=== PATIENT | female | born 1945 | race Caucasian/White ===

== ENCOUNTER 2017-05-27 21:55 | Inpatient (IN) | payer OTHER ==
[~2017-05-27] VITALS: Ht 165.1 cm; Wt 81.9 kg
[~2017-05-27 21:55] MED LIST: ASPIRIN; BP MED; BYSTOLIC5 MG PO; CHOLESTEROL MED; CRESTOR20 MG PO; ENDOCET 5-3251 EAC1 PO; METAXALONE800 MG PO; NIACIN500 M1 PO; OXYCODONE5 MG PO; PARAFON FORTE500 MG PO; Percocet 7.5/325,End PO; VALIUM5 MG PO
[2017-05-27 22:47] LABS: HEMATOCRIT 37.6 % (36.0-46.0); HEMOGLOBIN 12.3 G/DL (11.9-15.5); MCH 28.5 PG (29.0-34.0); MCHC 32.7 G/DL (30.0-36.0); PLATELET COUNT 299 K/uL (156-360); RBC DIS.WIDTH-CV 12.3 % (11.8-14.6); RBC DIS.WIDTH-SD 39.6 % (39-53); RED BLOOD COUNT 4.32 M/uL (3.80-5.20); WHITE BLOOD COUNT 11.6 K/uL (4.1-10.2)
[2017-05-27 22:58] LABS: CHLORIDE 101 mEq/L (99-109); POTASSIUM 4.7 mEq/L (3.7-5.4); SODIUM 135 mEq/L (136-147)
[2017-05-27 22:59] LABS: GLUCOSE 136 mg/dL (70-99)
[2017-05-27 23:03] LABS: CREATININE 0.9 mg/dL (0.6-1.3); GFR ESTIMATE (CALCULATED) > 59 mL/min/
[2017-05-27 23:04] LABS: UREA NITROGEN (BUN) 16 mg/dL (9-23)
[2017-05-27 23:08] LABS: TROP-I INTERPRETATION NEGATIVE; TROPONIN-I 0.02 ng/mL (0.0-0.30)
[2017-05-28] MEDS ORDERED: LORAZEPAM0.5 MG PO (01:04)
[2017-05-28] MEDS ORDERED: SLEEP AID25 M1 PO (01:04)
[2017-05-28] MEDS ORDERED: SIMVASTATIN40 MG PO (01:05)
[2017-05-28] MEDS ORDERED: CELEBREX200 MG PO (01:05)
[2017-05-28] MEDS ORDERED: METOPROLOL SUCC50 MG PO (01:05)
[2017-05-28] MEDS ORDERED: TYLENOL ARTHRI650 MG PO (01:05)
[2017-05-28] MEDS ORDERED: ST. JOHN'S WOR300 MG PO (01:05)
[2017-05-28 01:43] LABS: PTT 32.2 SEC (25-37)
[2017-05-28 01:57] LABS: ALBUMIN 3.7 g/dL (3.2-4.8)
[2017-05-28 02:00] LABS: TOTAL PROTEIN 7.6 g/dL (6.4-8.3)
[2017-05-28 02:02] LABS: TOTAL BILIRUBIN 0.3 mg/dL (0.0-1.0)
[2017-05-28 02:03] LABS: ALKALINE PHOSPHATASE 76 IU/L (3-129)
[2017-05-28 02:05] LABS: AST (GOT) 19 IU/L (2-34)
[2017-05-28 02:06] LABS: ALT (GPT) 18 IU/L (3-49); DIRECT BILIRUBIN 0.2 mg/dL (0.0-0.3)
[2017-05-28 02:07] LABS: LIPASE 48 U/L (1.0-51.0)
[2017-05-28 06:22] VITALS: BP 147/86
[2017-05-28 11:03] VITALS: BP 149/83
[2017-05-28 15:11] LABS: TROP-I INTERPRETATION POSITIVE; TROPONIN-I 0.88 ng/mL (0.0-0.30)
[2017-05-28 15:50] VITALS: BP 140/69
[2017-05-28 20:14] VITALS: BP 147/75
[2017-05-28 23:02] LABS: TROP-I INTERPRETATION POSITIVE; TROPONIN-I 0.95 ng/mL (0.0-0.30)
[2017-05-28 23:25] VITALS: BP 138/78
[2017-05-29 04:39] VITALS: BP 130/76
[2017-05-29 06:32] LABS: TROP-I INTERPRETATION POSITIVE; TROPONIN-I 0.97 ng/mL (0.0-0.30)
[2017-05-29 08:08] VITALS: BP 140/78
[2017-05-29 11:45] VITALS: BP 127/86
[2017-05-29 15:09] VITALS: BP 121/86
[2017-05-29 19:46] VITALS: BP 144/70
[2017-05-29 23:15] VITALS: BP 118/68
[2017-05-30 05:00] VITALS: BP 130/71
[2017-05-30 07:03] LABS: TROP-I INTERPRETATION INDETERMINATE; TROPONIN-I 0.51 ng/mL (0.0-0.30)
[2017-05-30 07:56] VITALS: BP 123/67
[2017-05-30 11:44] VITALS: BP 136/73
[2017-05-30 15:33] VITALS: BP 143/70
[2017-05-30 19:29] VITALS: BP 151/69
[2017-05-30 23:56] VITALS: BP 110/60
[2017-05-31 03:28] VITALS: BP 115/73
[2017-05-31 08:33] VITALS: BP 122/68
[2017-05-31 17:41] VITALS: BP 131/65
[2017-05-31 23:52] VITALS: BP 111/55
[2017-06-01 03:23] VITALS: BP 138/69
[2017-06-01 08:26] VITALS: BP 115/64
[2017-06-01 15:50] VITALS: BP 131/77
[2017-06-01 20:00] VITALS: BP 108/61
[2017-06-02 00:04] VITALS: BP 94/58
[2017-06-02 03:45] VITALS: BP 92/53
[2017-06-02 09:01] VITALS: BP 106/57
[2017-06-02 09:28] LABS: HEMOGLOBIN 11.3 G/DL (11.9-15.5); MCH 28.2 PG (29.0-34.0); MCHC 32.3 G/DL (30.0-36.0); MCV 87.3 FL (83-99); PLATELET COUNT 266 K/uL (156-360); RBC DIS.WIDTH-CV 12.5 % (11.8-14.6); RBC DIS.WIDTH-SD 40.1 % (39-53); RED BLOOD COUNT 4.01 M/uL (3.80-5.20); WHITE BLOOD COUNT 9.3 K/uL (4.1-10.2)
[2017-06-02 09:53] LABS: CHLORIDE 95 MEQ/L (99-109); CREATININE 0.8 MG/DL (0.6-1.3); GFR ESTIMATE (CALCULATED) > 59 mL/min/; GLUCOSE 124 mg/dL (70-99); POTASSIUM 3.9 MEQ/L (3.7-5.4); SODIUM 130 MEQ/L (136-147); UREA NITROGEN (BUN) 18 mg/dL (9-23)
[2017-06-02 11:29] VITALS: BP 118/62
[2017-06-02 16:02] VITALS: BP 133/60
== END 2017-06-02 16:41 | disposition short-term general hospital (02) | DRG 280 ==
LOC: EME 21:55 → 3EAST 05-28 04:48 → EDOF 05-28 04:48 → ENRESERV 05-28 04:54 → 3EAST 05-28 05:40 → ENRESERV 06-01 10:00 → 3EAST 06-01 11:54 → ENRESERV 06-01 14:14 → 4EAST 06-01 15:45 → ENPENDDIS 06-02 → 4EAST 06-02 16:41
PROVIDERS: Emergency Medicine; Internal Medicine; Internal Medicine Cardiovascular Disease; Internal Medicine Pulmonary Disease
DX: I21.4 Non-ST elevation (NSTEMI) myocardial infarction (principal); J18.9 Pneumonia, unspecified organism; J20.9 Acute bronchitis, unspecified; J44.0 Chronic obstructive pulmonary disease with (acute) lower respiratory infection; J44.1 Chronic obstructive pulmonary disease with (acute) exacerbation; I08.3 Combined rheumatic disorders of mitral, aortic and tricuspid valves; I10 Essential (primary) hypertension; I25.10 Atherosclerotic heart disease of native coronary artery without angina pectoris; E78.5 Hyperlipidemia, unspecified; I25.5 Ischemic cardiomyopathy; I44.7 Left bundle-branch block, unspecified; F41.9 Anxiety disorder, unspecified; G89.29 Other chronic pain; M19.90 Unspecified osteoarthritis, unspecified site; E66.9 Obesity, unspecified; Z68.31 Body mass index [BMI] 31.0-31.9, adult; Z87.891 Personal history of nicotine dependence; Z98.1 Arthrodesis status; Z82.49 Family history of ischemic heart disease and other diseases of the circulatory system; Z82.5 Family history of asthma and other chronic lower respiratory diseases
CPT/HCPCS: 71046; 71250; 78452; 80048; 80076; 83605; 83690; 84484; 85027; 85379; 85610; 85730; 87040; 93005; 93306; 94640; 94640 76; 99202; 99281; 99285; A9500; C1750; C1769; C1887; J1644; J1650; J1956; J2250; J2785; J7512

== ENCOUNTER 2017-08-04 19:54 | Inpatient (IN) | payer OTHER ==
[~2017-08-04] VITALS: Ht 165.1 cm; Wt 76.6 kg
[~2017-08-04 19:54] MED LIST changes: +CELEBREX200 MG PO; +LORAZEPAM0.5 MG PO; +METOPROLOL SUCC50 MG PO; +SIMVASTATIN40 MG PO; +SLEEP AID25 M1 PO; +ST. JOHN'S WOR300 MG PO; +TYLENOL ARTHRI650 MG PO
[2017-08-04 20:57] LABS: BASE EXCESS 3.3 mEq/L (-3 to +3); BICARBONATE 27.8 mEq/L (22-26); COMMENTS - BLOOD GASES C+; DEVICE NC; METHEMOGLOBIN 1.5 % (0-1.5); O2 FLOW 2 L/MIN; PCO2 41 mm Hg (35-45); PO2 85 mm Hg (80-100); SITE RR; pH 7.44 (7.35-7.45)
[2017-08-04 21:00] LABS: BASOPHIL (%) 0.2 % (0-1); EOSINOPHIL (%) 0.2 % (0-5); HEMATOCRIT 35.2 % (36.0-46.0); HEMOGLOBIN 11.3 G/DL (11.9-15.5); IMMATURE GRANULOCYTE (%) 0.4 % (0.0-0.7); LYMPHOCYTE (%) 15.5 % (15-42); LYMPHOCYTE COUNT 1.9 K/uL (1.0-2.8); MCH 26.5 PG (29.0-34.0); MCHC 32.1 G/DL (30.0-36.0); MCV 82.6 FL (83-99); MONOCYTE (%) 8.9 % (3-12); MONOCYTE COUNT 1.1 K/uL (0-0.8); NEUTROPHIL (%) 74.8 % (45-76); NEUTROPHIL COUNT 9.2 K/uL (1.8-6.4); PLATELET COUNT 268 K/uL (156-360); RBC DIS.WIDTH-CV 12.9 % (11.8-14.6); RBC DIS.WIDTH-SD 38.8 % (39-53); RED BLOOD COUNT 4.26 M/uL (3.80-5.20); WHITE BLOOD COUNT 12.3 K/uL (4.1-10.2)
[2017-08-04 21:04] LABS: ALBUMIN 3.5 g/dL (3.2-4.8)
[2017-08-04 21:05] LABS: CHLORIDE 95 mEq/L (99-109); POTASSIUM 4.5 mEq/L (3.7-5.4); SODIUM 130 mEq/L (136-147)
[2017-08-04 21:07] LABS: GLUCOSE 137 mg/dL (70-99); TOTAL PROTEIN 7.3 g/dL (6.4-8.3)
[2017-08-04 21:09] LABS: TOTAL BILIRUBIN 0.6 mg/dL (0.0-1.0)
[2017-08-04 21:10] LABS: ALKALINE PHOSPHATASE 80 IU/L (3-129)
[2017-08-04 21:11] LABS: CREATININE 0.8 mg/dL (0.6-1.3); GFR ESTIMATE (CALCULATED) > 59 mL/min/
[2017-08-04 21:12] LABS: AST (GOT) 16 IU/L (2-34); UREA NITROGEN (BUN) 11 mg/dL (9-23)
[2017-08-04 21:14] LABS: ALT (GPT) 13 IU/L (3-49)
[2017-08-04 21:16] LABS: TROP-I INTERPRETATION NEGATIVE; TROPONIN-I 0.03 ng/mL (0.0-0.30)
[2017-08-05] VITALS (8 sets, daily range): BP systolic 111–149; BP diastolic 56–88
[2017-08-05] MEDS ORDERED: DUONEB 2.5-0.5 M3 ML AEROSOL (00:25)
[2017-08-05] MEDS ORDERED: ADULT ASPIRIN R81 MG PO (00:26)
[2017-08-05] MEDS ORDERED: LISINOPRIL2.5 MG PO (00:26)
[2017-08-05 06:11] LABS: TROP-I INTERPRETATION NEGATIVE; TROPONIN-I 0.04 ng/mL (0.0-0.30)
[2017-08-05 13:22] LABS: TROP-I INTERPRETATION NEGATIVE; TROPONIN-I 0.02 ng/mL (0.0-0.30)
[2017-08-06 04:35] VITALS: BP 133/60
[2017-08-06 08:55] VITALS: BP 113/57
[2017-08-06 11:38] VITALS: BP 113/64
[2017-08-06 16:33] VITALS: BP 114/58
[2017-08-06 20:00] VITALS: BP 133/75
[2017-08-07 01:35] VITALS: BP 128/68
[2017-08-07 06:06] VITALS: BP 130/76
[2017-08-07 08:35] VITALS: BP 103/54
== END 2017-08-07 11:17 | disposition home or self-care (01) | DRG 192 ==
LOC: EME 19:54 → 3EAST 08-05 00:45 → EDOF 08-05 00:45 → ENRESERV 08-05 01:08 → 3EAST 08-05 01:59
PROVIDERS: Emergency Medicine; Internal Medicine
DX: J44.1 Chronic obstructive pulmonary disease with (acute) exacerbation (principal); J06.9 Acute upper respiratory infection, unspecified; I25.10 Atherosclerotic heart disease of native coronary artery without angina pectoris; I11.9 Hypertensive heart disease without heart failure; E78.5 Hyperlipidemia, unspecified; G89.29 Other chronic pain; I44.7 Left bundle-branch block, unspecified; M19.90 Unspecified osteoarthritis, unspecified site; M54.5 Low back pain; R00.0 Tachycardia, unspecified; R91.8 Other nonspecific abnormal finding of lung field; Z87.891 Personal history of nicotine dependence; Z95.1 Presence of aortocoronary bypass graft; Z98.1 Arthrodesis status; Z87.01 Personal history of pneumonia (recurrent); Z79.51 Long term (current) use of inhaled steroids; Z82.49 Family history of ischemic heart disease and other diseases of the circulatory system
CPT/HCPCS: 36600; 71260; 80053; 82803; 83605; 83880; 84484; 85025; 87040; 87502; 93005; 93798; 94640; 94640 76; 94799; 99202; 99281; 99284; J1940; J1956; J7030; J7040; J7512